=== PATIENT | male | born 2000 | race Caucasian/White ===

== ENCOUNTER 2018-09-14 19:25 | Emergency (ER) | payer OTHER ==
[~2018-09-14] VITALS: Ht 180.3 cm; Wt 86.2 kg
[2018-09-14 19:25] VITALS: BP 159/114
--- NOTE | 2018-09-14 19:25 | NUR ---
RITUA ON GURNEY WAITING FOR BED, VSS
[2018-09-14 19:49] LABS: BASOPHILS # (AUTO) 0.1 K/uL (0.00-0.22); BASOPHILS % (AUTO) 0.5 % (0.0-2.0); EOSINOPHILS # (AUTO) 0.2 K/uL (0-0.4); EOSINOPHILS % (AUTO) 1.8 % (0.0-4.0); HEMATOCRIT 39.9 % (36-52); HEMOGLOBIN 13.3 g/dL (12.0-18.0); LYMPHOCYTES # (AUTO) 1.3 K/uL (2.0-11.5); LYMPHOCYTES % (AUTO) 11.2 % (20.5-51.1); MEAN CORPUSCULAR HEMOGLOBIN 27 pg (27-31); MEAN CORPUSCULAR HGB CONC 33 g/dL (33-37); MEAN CORPUSCULAR VOLUME 80.9 fL (80-94); MONOCYTES # (AUTO) 0.4 K/uL (0.8-1.0); MONOCYTES % (AUTO) 3.2 % (1.7-9.3); NEUTROPHILS # (AUTO) 9.4 K/uL (1.8-7.7); NEUTROPHILS % (AUTO) 83.3 % (42.2-75.2); PLATELET COUNT (AUTO) 196 K/uL (140-450); RED BLOOD CELL COUNT(AUTO) 4.93 MIL/uL (4.20-6.10); RED CELL DISTRIBUTION WIDTH 13.6 % (11.6-13.7); WHITE BLOOD COUNT (AUTO) 11.3 K/uL (4.5-11.0)
[2018-09-14 20:01] LABS: ANION GAP 11.7 (8-16); CARBON DIOXIDE 27.8 mmol/L (21-32); CHLORIDE 105 mmol/L (98-107); CREATININE 1.3 mg/dL (0.7-1.3); GFR ARICAN-AMERICAN 91 mL/min (>90); GLUCOSE 151 mg/dL (74-106); POTASSIUM 3.5 mmol/L (3.5-5.1); SODIUM SERUM 141 mmol/L (136-145); UREA NITROGEN, BLOOD 14 mg/dL (7-18)
[2018-09-14 20:07] LABS: ALBUMIN 4.2 g/dL (3.4-5.0); ASPARTATE AMINOTRANSFERASE 23 U/L (15-37); TOTAL BILIRUBIN 0.3 mg/dL (0.0-1.0)
[2018-09-14 20:10] LABS: SALICYLATE < 2.8 mg/dL (2.8-20.0)
[2018-09-14 20:11] LABS: ACETAMINOPHEN < 0.5 ug/ml (10-30)
--- NOTE | 2018-09-14 20:14 | NUR ---
PT TAKEN BY PARAMJIT TO BED #6
--- NOTE | 2018-09-14 20:32 | NUR ---
PARENTS AT BEDSIDE WITH PATIENT, OKAY PER DR UGARTE
--- NOTE | 2018-09-14 20:34 | NUR ---
PATIENT PRESENTS TO ED WITH BAYRON RICE ON 5149 FOR DANGER TO SELF AND OTHERS. 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 PATIENT ALSO NOTED TO HAVE SELF INFLICTED BITE HARDING TO L HAND. PA DENIES N/V/D; SKIN IS PINK/WARM/DRY; AAOX3 WITH EVEN AND STEADY GAIT; LUNGS CLEAR BL; HR EVEN AND REGULAR; PT DENIES ANY FEVER, CP, SOB, OR COUGH AT THIS TIME; PATIENT STATES PAIN OF 0/10 AT THIS TIME; VSS; PATIENT POSITIONED FOR COMFORT; HOB ELEVATED; BEDRAILS UP X2; BED DOWN. ER MD MADE AWARE OF PT STATUS. PATIENT ACCOMPANIED BY JOJO FARAH AT BEDSIDE, PARENTS ALSO AT BEDSIDE OKAY PER DR UGARTE
--- NOTE | 2018-09-14 20:38 | NUR ---
REQUEST FOR TELEPSYCH SUBMITTED
--- NOTE | 2018-09-14 21:15 | NUR ---
DR BURNS FROM [facility] CALLED AND UPDATED DR WITH SITUATION- WILL SPEAK TO PATIENT SOON-
[2018-09-14 21:21] LABS: BARBITURATE, URINE NEG. ng/ml (NEG <=200); BENZODIAZEPINE, URINE NEG. ng/mL (NEG <=200); CANNABINOID, URINE NEG. ng/mL (NEG <=50); COCAINE, URINE NEG. ng/mL (NEG <=300); OPIATE, URINE NEG. ng/mL (NEG <=2000); PHENCYCLIDINE SCREEN,URINE NEG. ng/mL (NEG <=25)
[2018-09-14] MEDS ORDERED: AMOXIL/CLAVULANATE 500/125 MG 1 TAB PO ONE (21:45)
[2018-09-14] MEDS ORDERED: LITHIUM CARBONATE 300 MG TAB PO ONE (21:45)
--- NOTE | 2018-09-14 21:52 | NUR ---
CALLED SPOKE TO SHAHZAD, MADE AWARE LITHIUM AND AUGMENTIN NOT LOAD IN PYXIS
[2018-09-14] MEDS ORDERED: AMOXIL/CLAVULANATE 875/125 MG 1 TAB PO ONE (22:40)
[2018-09-14] MEDS ORDERED: LITHIUM CARBONATE 300 MG TAB ONE (22:55)
[2018-09-14] MEDS ORDERED: AMOXIL/CLAVULANATE 875/125 MG 1 TAB ONE (22:56)
[2018-09-14 23:29] VITALS: BP 135/80
--- NOTE | 2018-09-14 23:29 | NUR ---
Patient discharged with v/s stable. Written and verbal after care instructions given and explained. Patient verbalized understanding. Ambulatory with by parent. All questions addressed prior to discharge. Advised to follow up with PMD.Patient release to both parents Alex
== END 2018-09-14 23:29 | disposition home or self-care (01) ==
LOC: MED 19:25
DX: S61.452A Open bite of left hand, initial encounter (principal); S61.451A Open bite of right hand, initial encounter; F91.1 Conduct disorder, childhood-onset type; F84.0 Autistic disorder; Y04.1XXA Assault by human bite, initial encounter; Y93.89 Activity, other specified; Y92.89 Other specified places as the place of occurrence of the external cause; Y99.8 Other external cause status
CPT/HCPCS: 36415; 80053; 80305; 81002; 85025; 93005; 99284; G0480; G0482; 99283